=== PATIENT | female | born 1945 | race Caucasian/White ===

== ENCOUNTER 2019-05-25 02:41 | Emergency (ER) | payer MEDICARE, BC ==
[2019-05-25] MEDS ORDERED: Nitroglycerin 0.4 MG Tab.SL SL PRN (03:32)
[2019-05-25] MEDS ORDERED: Aspirin 81 MG Tab.Chew PO ONE (03:32)
[2019-05-25] MEDS ORDERED: Sodium Chloride 0.9% 10 ML Syringe FLUSH PRN (03:33)
--- NOTE | 2019-05-25 03:37 | EDM.PDOC ---
ED HPI GENERAL MEDICAL PROBLEM - General Chief Complaint: Cardiovascular Problem Stated Complaint: CHEST PAIN Time Seen by Provider: 05/25/19 03:33 Source of Information: Reports: Patient History Limitations: Reports: No Limitations - History of Present Illness INITIAL COMMENTS - FREE TEXT/NARRATIVE: Developed palpitations @1.5 hours ago, checked her BP, was noted to be high at 189/60, then developed non-radiating substernal chest heaviness. Denies SOB or nausea. No prior h/o CAD. Duration: Hour(s): (1.5) Location: Reports: Chest Severity: Mild - Related Data Allergies Allergy/AdvReac Type Severity Reaction Status Date / Time cinnamon [Cinnamon] Allergy Difficulty Verified 07/27/13 08:15 Breathing codeine Allergy Cannot Verified 09/26/13 21:04 Remember Home Meds: Home Meds Albuterol [Ventolin HFA] 2 puff INH QID PRN 07/23/13 [History] Aspirin [Children's Aspirin] 81 mg PO DAILY 07/23/13 [History] Budesonide/Formoterol [Symbicort 160-4.5 Mcg Inhaler] 2 inhaler ORAL.INH BID [History] Celecoxib [CeleBREX] 100 mg PO BID 07/23/13 [History] Fluticasone Propionate [Flonase] 1 spray NASBOTH DAILY 07/23/13 [History] Insulin Detemir [Levemir] 15 units SQ DAILY 07/23/13 [History] Simvastatin [Zocor] 40 mg PO BEDTIME 07/23/13 [History] amLODIPine [Norvasc] 10 mg PO DAILY 07/23/13 [History] traMADol HCl [Ultram] 50 mg PO Q8HR PRN 07/23/13 [History] Ketotifen Fumarate [Alaway] 1 drop OP BID 07/27/13 [History] carvediloL [Carvedilol] 25 mg PO BID 05/25/19 [History] hydrALAZINE HCl [Hydralazine HCl] 75 mg PO BID 05/25/19 [History] Past Medical History Cardiovascular History: Reports: High Cholesterol, Hypertension. Denies: CAD Genitourinary History: Reports: Chronic Renal Insuffiency Other Musculoskeletal History: lt ankle injury in past Endocrine/Metabolic History: Reports: Diabetes, Type II ED ROS GENERAL - Review of Systems Review Of Systems: Comprehensive ROS is negative, except as noted in HPI. ED EXAM, GENERAL - Physical Exam Exam: See Below Exam Limited By: No Limitations General Appearance: Alert, WD/WN, No Apparent Distress Ears: Normal External Exam Nose: Normal Inspection Throat/Mouth: Normal Inspection, No Airway Compromise Head: Atraumatic, Normocephalic Neck: Full Range of Motion Respiratory/Chest: No Respiratory Distress, Lungs Clear, Normal Breath Sounds, No Accessory Muscle Use, Chest Non-Tender Cardiovascular: Regular Rate, Rhythm, No Murmur GI/Abdominal: Normal Bowel Sounds, Soft, Non-Tender, No Distention Back Exam: Full Range of Motion Extremities: Normal Inspection, Normal Range of Motion, Non-Tender, No Pedal Edema Neurological: Alert, Normal Cognition, No Motor/Sensory Deficits Psychiatric: Normal Affect, Normal Mood Skin Exam: Warm, Dry, Intact EKG INTERPRETATION EKG Date: 05/25/19 Time: 02:46 Rhythm: NSR Rate (Beats/Min): 88 [place]: Normal P-Wave: Present QRS: LBBB Comparison: No Change (07/14/13) Course - Vital Signs Last Recorded V/S: Last Vital Signs Temp 36.8 C 05/25/19 02:41 Pulse 84 05/25/19 02:41 Resp 18 05/25/19 02:41 BP 195/58 H 05/25/19 03:45 Pulse Ox 97 05/25/19 02:41 - Orders/Labs/Meds Orders: Active Orders 24 hr Category Date Time Status EKG Documentation Completion [RC] ASDIRECTED Care 05/25/19 03:31 Active CXR [Chest 1V Frontal] [CR] Stat Exams 05/25/19 03:31 Taken TROPONIN I [CHEM] Routine Lab 05/25/19 07:45 Ordered Nitroglycerin [Nitrostat] Med 05/25/19 03:32 Active 0.4 mg SL Q5M PRN Sodium Chloride 0.9% [Saline Flush] Med 05/25/19 03:33 Active 10 ml FLUSH ASDIRECTED PRN Saline Lock Insert [OM.PC] Routine Oth 05/25/19 03:33 Ordered EKG 12 Lead [EK] Stat Ther 05/25/19 03:31 Ordered Medication Orders Nitroglycerin (Nitrostat) 0.4 mg SL Q5M PRN PRN Reason: Chest Pain Last Admin: 05/25/19 03:45 Dose: 0.4 mg Sodium Chloride (Saline Flush) 10 ml FLUSH ASDIRECTED PRN PRN Reason: Keep Vein Open Last Admin: 05/25/19 04:02 Dose: 10 ml Labs: Laboratory Tests 05/25/19 05/25/19 05/25/19 Range/Units 03:45 03:45 03:45 WBC 9.9 (4.5-12.0) X10-3/uL RBC 4.47 (3.23-5.20) x10(6)uL Hgb 11.7 (11.5-15.5) g/dL Hct 36.7 (30.0-51.3) % MCV 82.0 (80-96) fL MCH 26.1 L (27.7-33.6) pg MCHC 31.8 L (32.2-35.4) g/dL RDW 12.8 (11.5-15.5) % Plt Count 260 (125-369) X10(3)uL MPV 8.9 (7.4-10.4) fL Neut % (Auto) 74.5 (46-82) % Lymph % (Auto) 13.9 (13-37) % [place] % (Auto) 6.7 (4-12) % Eos % (Auto) 4 (1.0-5.0) % Baso % (Auto) 1 (0-2) % Neut # (Auto) 7.3 (1.6-8.3) # Lymph # (Auto) 1.4 (0.6-5.0) # Collin # (Auto) 0.7 (0.0-1.3) # Eos # (Auto) 0.4 (0.0-0.8) # Baso # (Auto) 0.1 (0.0-0.2) # PT 10.6 (9.0-11.1) sec INR 1.10 (1.00-1.24) APTT 24.4 (24.4-33.2) SECONDS Sodium 137 (135-145) mmol/L Potassium 3.3 L (3.5-5.3) mmol/L Chloride 98 L (100-110) mmol/L Carbon Dioxide 24 (21-32) mmol/L BUN 42 H (7-18) mg/dL Creatinine 2.8 H* (0.55-1.02) mg/dL Est Cr Clr Drug Dosing 13.91 mL/min Estimated GFR (MDRD) 17 L (>60) BUN/Creatinine Ratio 15.0 (9-20) Glucose 314 H (80-116) mg/dL Calcium 9.0 (8.6-10.2) mg/dL Total Bilirubin 0.5 (0.1-1.3) mg/dL AST 16 (5-25) IU/L ALT 14 (12-36) U/L Alkaline Phosphatase 104 (56-112) IU/L Troponin I (4.0-60.3) pg/mL Total Protein 8.1 H (6.0-8.0) g/dL Albumin 3.8 (3.2-4.6) g/dL Globulin 4.3 g/dL Albumin/Globulin Ratio 0.9 03/24/20 Range/Units 03:45 WBC (4.5-12.0) X10-3/uL RBC (3.23-5.20) x10(6)uL Hgb (11.5-15.5) g/dL Hct (30.0-51.3) % MCV (80-96) fL MCH (27.7-33.6) pg MCHC (32.2-35.4) g/dL RDW (11.5-15.5) % Plt Count (125-369) X10(3)uL MPV (7.4-10.4) fL Neut % (Auto) (46-82) % Lymph % (Auto) (13-37) % [place] % (Auto) (4-12) % Eos % (Auto) (1.0-5.0) % Baso % (Auto) (0-2) % Neut # (Auto) (1.6-8.3) # Lymph # (Auto) (0.6-5.0) # [place]lin # (Auto) (0.0-1.3) # Eos # (Auto) (0.0-0.8) # Baso # (Auto) (0.0-0.2) # PT (9.0-11.1) sec INR (1.00-1.24) APTT (24.4-33.2) SECONDS Sodium (135-145) mmol/L Potassium (3.5-5.3) mmol/L Chloride (100-110) mmol/L Carbon Dioxide (21-32) mmol/L BUN (7-18) mg/dL Creatinine (0.55-1.02) mg/dL Est Cr Clr Drug Dosing mL/min Estimated GFR (MDRD) (>60) BUN/Creatinine Ratio (9-20) Glucose (80-116) mg/dL Calcium (8.6-10.2) mg/dL Total Bilirubin (0.1-1.3) mg/dL AST (5-25) IU/L ALT (12-36) U/L Alkaline Phosphatase (56-112) IU/L Troponin I 24.2 (4.0-60.3) pg/mL Total Protein (6.0-8.0) g/dL Albumin (3.2-4.6) g/dL Globulin g/dL Albumin/Globulin Ratio Meds: Medications Generic Name Dose Route Start Last Admin Trade Name Freq PRN Reason Stop Dose Admin Nitroglycerin 0.4 mg 05/25/19 03:32 05/25/19 03:45 Nitrostat SL 0.4 mg Q5M PRN Administration Chest Pain Sodium Chloride 10 ml 05/25/19 03:33 05/25/19 04:02 Saline Flush FLUSH 10 ml ASDIRECTED PRN Administration Keep Vein Open Discontinued Medications Generic Name Dose Route Start Last Admin Trade Name Freq PRN Reason Stop Dose Admin Aspirin 324 mg 05/25/19 03:32 05/25/19 03:36 Aspirin PO 05/25/19 03:33 324 mg ONETIME ONE Administration Labetalol HCl 10 mg 05/25/19 05:05 05/25/19 05:14 Normodyne IVPUSH 05/25/19 05:06 10 mg ONETIME ONE Administration Protocol Morphine Sulfate 4 mg 05/25/19 03:45 05/25/19 04:01 Morphine IVPUSH 05/25/19 03:46 Not Given ONETIME ONE - Radiology Interpretation Free Text/Narrative:: CXR: No acute process. (ED provider interpretation) - Re-Assessments/Exams Free Text/Narrative Re-Assessment/Exam: 05/25/19 04:26 Chest pain resolved after NTG SL x 1. 05/25/19 07:00 Patient care transferred to Dr. Gloria pending repeat Troponin. Departure - Departure Time of Disposition: 07:00 Disposition: Still A Patient 30 Clinical Impression: Chest pain Qualifiers: Chest pain type: unspecified Qualified Code(s): R07.9 - Chest pain, unspecified Referrals: Leonardo Banda MD [Primary Care Provider] - Forms: ED Department Discharge Sepsis Event Note - Evaluation Sepsis Screening Result: No Definite Risk - Focused Exam Vital Signs: Vital Signs Temp Pulse Resp BP BP Pulse Ox 05/25/19 03:45 195/58 H 05/25/19 02:41 36.8 C 84 18 220/83 H 97 Date Exam was Performed: 05/25/19 Time Exam was Performed: 05:49 - My Orders Last 24 Hours: My Active Orders 05/25/19 03:31 EKG Documentation Completion [RC] ASDIRECTED CXR [Chest 1V Frontal] [CR] Stat EKG 12 Lead [EK] Stat 05/25/19 03:32 Nitroglycerin [Nitrostat] 0.4 mg SL Q5M PRN 05/25/19 03:33 Sodium Chloride 0.9% [Saline Flush] 10 ml FLUSH ASDIRECTED PRN Saline Lock Insert [OM.PC] Routine 05/25/19 07:45 TROPONIN I [CHEM] Routine - Assessment/Plan Last 24 Hours: My Active Orders 05/25/19 03:31 EKG Documentation Completion [RC] ASDIRECTED CXR [Chest 1V Frontal] [CR] Stat EKG 12 Lead [EK] Stat 05/25/19 03:32 Nitroglycerin [Nitrostat] 0.4 mg SL Q5M PRN 05/25/19 03:33 Sodium Chloride 0.9% [Saline Flush] 10 ml FLUSH ASDIRECTED PRN Saline Lock Insert [OM.PC] Routine 05/25/19 07:45 TROPONIN I [CHEM] Routine
[2019-05-25] MEDS ORDERED: Morphine 2 MG/ML Syringe IVPUSH ONE (03:45)
[2019-05-25] MEDS ORDERED: Labetalol 20 MG/4 ML Syringe IVPUSH ONE (05:05)
--- NOTE | 2019-05-25 10:27 | CR ---
INDICATION: Chest pain. CHEST ONE VIEW: An AP upright view of the chest was obtained portable 2019 - no comparisons. The heart did not appear enlarged allowing for the AP positioning. Overlying EKG leads are noted. Evidence of exogenous obesity is noted. A definite consolidating pneumonia or effusion was not identified. However, markings are somewhat heavy in the mid to lower lung ledbetter, especially on the right in the right mid lung field and likely this is due to a relatively poor inspiration and/or fibrosis. It does make it difficult to exclude minimal patchy pneumonia however - correlate clinically. MTDD
[2019-05-25 14:20] VITALS: BP 161/64; PULSE 74
== END 2019-05-25 10:08 | disposition home or self-care (01) ==
LOC: FB.ED 02:41
DX: R07.2 Precordial pain (principal); I12.9 Hypertensive chronic kidney disease with stage 1 through stage 4 chronic kidney disease, or unspecified chronic kidney disease; E11.22 Type 2 diabetes mellitus with diabetic chronic kidney disease; N18.9 Chronic kidney disease, unspecified; E78.00 Pure hypercholesterolemia, unspecified; I44.7 Left bundle-branch block, unspecified; Z88.5 Allergy status to narcotic agent; Z91.018 Allergy to other foods; Z79.82 Long term (current) use of aspirin; Z79.899 Other long term (current) drug therapy; Z79.4 Long term (current) use of insulin
CPT/HCPCS: 36415; 71045; 80053; 84484; 85025; 85610; 85730; 93005; 96374; 99285-25; A9270-GY; J3490

== ENCOUNTER 2023-09-17 16:49 | Emergency (ER) | payer MEDICARE, BC ==
[2023-09-17 18:04] LABS: BASOPHILS ABSOLUTE AUTO 0.3 x10-3/uL (0.0-0.1); BASOPHILS PERCENT AUTO 3.6 % (0.2-1.5); EOSINOPHILS ABSOLUTE AUTO 0.1 x10-3/uL (0.0-0.8); EOSINOPHILS PERCENT AUTO 1.4 % (0.6-8.1); HEMATOCRIT 27.6 % (34.2-48.2); HEMOGLOBIN 8.7 g/dL (11.4-15.5); LYMPHOCYTES ABSOLUTE AUTO 0.5 x10-3/uL (1.0-4.4); LYMPHOCYTES PERCENT AUTO 6.3 % (18.4-52.1); MEAN CORPUSCULAR HEMOGLOBIN 25.8 pg (23.9-33.9); MEAN CORPUSCULAR HGB CONC 31.4 g/dL (31.9-34.8); MEAN CORPUSCULAR VOLUME 82.2 fL (76.7-100.5); MEAN PLATELET VOLUME 8.6 fL (7.1-12.4); MONOCYTES ABSOLUTE AUTO 0.3 x10-3/uL (0.3-1.0); NEUTROPHILS ABSOLUTE AUTO 6.1 x10-3/uL (1.5-6.3); NEUTROPHILS PERCENT AUTO 84.7 % (30.8-76.2); PLATELET COUNT,PLT 379 x10(3)uL (151-488); RED BLOOD CELL COUNT 3.36 x10(6)uL (3.60-5.20); RED CELL DISTRIBUTION WIDTH 17.8 % (12.3-16.5); WHITE BLOOD CELL COUNT,WBC 7.2 x10-3/uL (3.0-10.3)
[2023-09-17 18:14] LABS: A/G RATIO 0.8; ALANINE AMINOTRANSFERASE,ALT 8 U/L (12-36); ALBUMIN 2.9 g/dL (3.2-4.6); ALKALINE PHOSPHATASE 193 IU/L (56-112); ASPARTATE AMNIOTRANSFERASE,AST 24 IU/L (5-25); BILIRUBIN TOTAL 0.4 mg/dL (0.1-1.3); BLOOD UREA NITROGEN,BUN 52 mg/dL (7-18); BUN/CREATININE RATIO 11.1 (9-20); CALCIUM 7.5 mg/dL (8.6-10.2); CARBON DIOXIDE,CO2 16 mmol/L (21-32); CHLORIDE,CL 111 mmol/L (100-110); EST CRCL DRUG DOSING (CG) 7.68 mL/min; ESTIMATED GFR 9 mL/min (>60); GLUCOSE RANDOM 107 mg/dL (80-116); POTASSIUM,K 3.7 mmol/L (3.5-5.3); PROTEIN TOTAL,TP 6.6 g/dL (6.0-8.0); SODIUM,NA 142 mmol/L (135-145)
[2023-09-17 18:15] LABS: CREATININE 4.7 mg/dL (0.55-1.02)
[2023-09-17 18:22] LABS: PRO B-TYPE NATRIUR PEPT,BNPPRO > 35000 pg/mL (<=450); TROPONIN I 408.3 pg/mL (4.0-60.3)
[2023-09-17 19:12] LABS: INR 1.14 (1.00-1.24); PROTHROMBIN TIME 11.7 sec (9.0-11.1)
[2023-09-17] MEDS: Carvedilol 25 MG Tab PO ONE (19:17)
[2023-09-17] MEDS: hydrALAZINE 20 MG/ML SDV IVPUSH ONE (19:21)
[2023-09-17] MEDS: Furosemide 40 MG/4 ML VIAL IVPUSH ONE (20:25)
[2023-09-17 23:33] VITALS: BP 100/40; PULSE 82
== END 2023-09-17 21:34 ==
LOC: FB.ED 16:49
DX: I13.0 Hypertensive heart and chronic kidney disease with heart failure and stage 1 through stage 4 chronic kidney disease, or unspecified chronic kidney disease (principal); I50.9 Heart failure, unspecified; N18.9 Chronic kidney disease, unspecified; J44.9 Chronic obstructive pulmonary disease, unspecified; J45.909 Unspecified asthma, uncomplicated; E87.5 Hyperkalemia; E11.9 Type 2 diabetes mellitus without complications; E78.00 Pure hypercholesterolemia, unspecified; Z88.8 Allergy status to other drugs, medicaments and biological substances; Z87.891 Personal history of nicotine dependence
CPT/HCPCS: 36415; 71045; 80053; 83880; 84484; 85025; 85610; 85730; 93005; 96374; 96375; 99285; A9270; J0360; J1940; 93010